=== PATIENT | male | born 1955 | race Hispanic/Latino ===

== ENCOUNTER 2021-08-17 18:51 | Emergency (ER) | payer MEDICARE ==
[2021-08-17 21:41] VITALS: BP 157/103
--- NOTE | 2021-08-17 22:13 | ER.PDOC ---
General Chief Complaint: Cough/Congestion Stated Complaint: CONGESTED/RUNNY NOSE Time seen by MD: 22:11 Source: patient Exam Limitations: no limitations History of Present Illness Initial Comments Cough and runny nose for 2 days. No fever or chills. Timing/Duration: gradual Severity: moderate Associated Symptoms: runny nose, cough Constitutional: no symptoms reported EENTM: see HPI Respiratory: see HPI Cardiovascular: no symptoms reported Gastrointestinal: no symptoms reported All Other Systems: Reviewed and Negative Past Medical History Medical History: no pertinent history Surgical History: other Family History Significant Family History: no pertinent family hx Social History Smoking: non-smoker Alcohol Use: occassionally Drug Use: none Physical Exam General Appearance: alert, no distress Eye: eyes nml inspection Ear: ear nml Nose: rhinorrhea Throat: pharynx nml, airway nml Neck: nml inspection, supple Respiratory: no resp.distress, breath sounds nml Abdomen: non-tender, no organomegaly CVS: reg rate & rhythm, heart sounds nml Skin: color nml, no rash, warm/dry Extremities: non-tender, nml ROM, no pedal edema NEURO/PSYCH: oriented x 3, CN's nml as tested, motor nml, sensation nml, mood/affect nml Results/Orders Results/Orders Orders - CANDIS CARRILLO MD Strep Screen (08/17/21 21:36) Influenza A&B (08/17/21 21:36) Covid19 Antigen Rebeccaruby Cohen (08/17/21 21:36) Vital Signs Date Time Temp Pulse Resp B/P (MAP) Pulse Ox O2 Delivery O2 Flow Rate FiO2 08/17/21 21:41 99.8 87 20 98 08/17/21 21:41 99.8 87 20 98 Laboratory Tests Test 08/17/21 22:00 Influenza Type A Antigen NEGATIVE (NEG) Influenza Type B Antigen NEGATIVE (NEG) SARS-CoV-2 Antigen (Rapid) NEGATIVE (NEGATIVE) Group A Streptococcus Screen NEGATIVE (NEGATIVE) Progress Progress Patient is negative for flu, strep and Covid. ER DEPART Departure Time of Disposition: 22:57 Disposition: 01 HOME / SELF CARE / HOMELESS Impression: Primary Impression: Viral upper respiratory tract infection with cough Condition: Stable Referrals: PCP,UNKNOWN (PCP) PRIMARY CARE PROVIDER Additional Instructions: Mucinex DM [id number] as directed Afrin nose drops [id number] as directed Follow-up with PCP in 1 week Return to ED if worsening symptoms or concerns Duration or Time Spent with Pa: 10 min CANDIS CARRILLO MD Aug 17, 2021 22:13
== END 2021-08-17 23:11 | disposition home or self-care (01) ==
LOC: ER 18:51
DX: J06.9 Acute upper respiratory infection, unspecified (principal); Z20.822 Contact with and (suspected) exposure to COVID-19
CPT/HCPCS: 87070; 87426; 87804; 87880; 99283